=== PATIENT | female | born 1955 | race Caucasian/White ===

== ENCOUNTER 2021-09-21 18:56 | Inpatient (IN) ==
[2021-09-26] MEDS ORDERED: ALPRAZolam 1 MG TABLET PO SCH (21:00)
[2021-09-26] MEDS: ALPRAZolam 1 MG TABLET PO SCH (21:17)
[2021-09-26] MEDS: polyethylene glycoL 3350 17 GM POWD.PACK PO SCH (21:18)
[2021-09-26] MEDS: carvediloL 6.25 MG TABLET PO SCH (22:49)
[2021-09-27] MEDS: *HR* Enoxaparin 40 MG/0.4 ML SYRINGE SQ SCH (05:19)
[2021-09-27] MEDS: *HR* OxyCODONE Immed Rel 5 MG TABLET PO PRN ×2 (05:19→13:40)
[2021-09-27 07:03] LABS: Basophils % 0.3 %; Eosinophils % 0.2 %; Hematocrit 25.6 % (35.3-44.9); Immature Granulocytes % 2.1 % (0-4); Lymphocytes # 0.7 K/mcL (0.6-4.6); Lymphocytes % 6.1 %; Mean Corpuscular HGB Conc 31.3 g/dL (31.6-35.5); Mean Corpuscular Volume 89.5 fL (83.0-100.0); Mean Platelet Volume 9.6 fL (9.4-12.4); Monocytes # 0.5 K/mcL (0.0-1.3); Monocytes % 4.5 %; Neutrophils # 9.9 K/mcL (1.6-8.9); Platelet Count 254 K/mcL (140-400); Red Blood Count 2.86 M/mcL (3.82-4.97); Red Cell Distribution Width 15.5 % (11.5-14.5); Segmented Neutrophils % 86.8 %; White Blood Count 11.4 K/mcL (4.3-11.1)
[2021-09-27 07:26] LABS: BUN/Creatinine Ratio 14 (6-26); Blood Urea Nitrogen 9 mg/dL (8-23); Calcium 7.7 mg/dL (8.6-10.3); Carbon Dioxide 23 mEq/L (23-29); Chloride 98 mEq/L (98-107); Glucose 111 mg/dL (70-105); Osmolality,Calculated 269 (280-300); Potassium 2.9 mEq/L (3.5-5.1); Sodium 130 mEq/L (136-145); eGFR For African Americans > 60 (> 60); eGFR For Non-African Americans > 60 (> 60)
[2021-09-27] MEDS: lisinopriL 10 MG TABLET PO SCH (08:28)
[2021-09-27] MEDS: PARoxetine 20 MG TABLET PO SCH (08:28)
[2021-09-27] MEDS: carvediloL 6.25 MG TABLET PO SCH ×2 (08:28→16:16)
[2021-09-27] MEDS: ALPRAZolam 1 MG TABLET PO SCH ×3 (08:29→20:24)
[2021-09-27] MEDS: Cholecalciferol (D-3) 1,000 UNIT (25MCG) TABLET PO SCH (08:29)
[2021-09-27] MEDS: polyethylene glycoL 3350 17 GM POWD.PACK PO SCH ×2 (08:29→20:25)
[2021-09-27] MEDS: cefTRIAXone 2,000 MG in 0.9 % Sodium Chloride Mini Bag 100 ML IVPB SCH (08:29)
[2021-09-27] MEDS: Aspirin Enteric Coated 81 MG Tablet PO SCH (08:29)
[2021-09-27] MEDS: Isosorbide MONOnitrate (24 HR) 30 MG TAB.ER.24H PO SCH (08:29)
[2021-09-27] MEDS ORDERED: CefTRIAXone 2,000 MG VIAL IVPB SCH (09:00)
[2021-09-27] MEDS ORDERED: Potassium Chloride Elixir 20 MEQ/15 ML UDC PO ONE (12:13)
[2021-09-27] MEDS: Nicotine 21 MG PATCH.TD24 TD SCH (16:17)
[2021-09-28] MEDS: *HR* Enoxaparin 40 MG/0.4 ML SYRINGE SQ SCH (05:35)
[2021-09-28] MEDS: Aspirin Enteric Coated 81 MG Tablet PO SCH (08:34)
[2021-09-28] MEDS: ALPRAZolam 1 MG TABLET PO SCH ×3 (08:34→20:10)
[2021-09-28] MEDS: Isosorbide MONOnitrate (24 HR) 30 MG TAB.ER.24H PO SCH (08:34)
[2021-09-28] MEDS: carvediloL 6.25 MG TABLET PO SCH ×2 (08:34→15:41)
[2021-09-28] MEDS: lisinopriL 10 MG TABLET PO SCH (08:34)
[2021-09-28] MEDS: Cholecalciferol (D-3) 1,000 UNIT (25MCG) TABLET PO SCH (08:34)
[2021-09-28] MEDS: polyethylene glycoL 3350 17 GM POWD.PACK PO SCH ×2 (08:35→20:11)
[2021-09-28] MEDS: cefTRIAXone 2,000 MG in 0.9 % Sodium Chloride Mini Bag 100 ML IVPB SCH (08:36)
[2021-09-28] MEDS: PARoxetine 20 MG TABLET PO SCH (08:37)
[2021-09-28] MEDS: Nicotine 21 MG PATCH.TD24 TD SCH (08:41)
[2021-09-28] MEDS: *HR* OxyCODONE Immed Rel 5 MG TABLET PO PRN (15:40)
[2021-09-29] MEDS: *HR* Enoxaparin 40 MG/0.4 ML SYRINGE SQ SCH (06:12)
[2021-09-29] MEDS: *HR* OxyCODONE Immed Rel 5 MG TABLET PO PRN ×3 (06:12→23:11)
[2021-09-29] MEDS: cefTRIAXone 2,000 MG in 0.9 % Sodium Chloride Mini Bag 100 ML IVPB SCH (09:09)
[2021-09-29] MEDS: Aspirin Enteric Coated 81 MG Tablet PO SCH (09:11)
[2021-09-29] MEDS: carvediloL 6.25 MG TABLET PO SCH ×2 (09:11→16:41)
[2021-09-29] MEDS: PARoxetine 20 MG TABLET PO SCH (09:11)
[2021-09-29] MEDS: polyethylene glycoL 3350 17 GM POWD.PACK PO SCH ×2 (09:11→20:34)
[2021-09-29] MEDS: lisinopriL 10 MG TABLET PO SCH (09:11)
[2021-09-29] MEDS: ALPRAZolam 1 MG TABLET PO SCH (09:11)
[2021-09-29] MEDS: Cholecalciferol (D-3) 1,000 UNIT (25MCG) TABLET PO SCH (09:11)
[2021-09-29] MEDS: Nicotine 21 MG PATCH.TD24 TD SCH (09:12)
[2021-09-29] MEDS: Isosorbide MONOnitrate (24 HR) 30 MG TAB.ER.24H PO SCH (09:12)
[2021-09-29 13:09] LABS: Basophils % 0.2 %; Eosinophils % 0.2 %; Hematocrit 25.8 % (35.3-44.9); Immature Granulocytes % 2.5 % (0-4); Lymphocytes # 0.9 K/mcL (0.6-4.6); Lymphocytes % 8.3 %; Mean Corpuscular Volume 90.2 fL (83.0-100.0); Mean Platelet Volume 9.3 fL (9.4-12.4); Monocytes # 0.4 K/mcL (0.0-1.3); Monocytes % 4.1 %; Platelet Count 277 K/mcL (140-400); Red Blood Count 2.86 M/mcL (3.82-4.97); Red Cell Distribution Width 15.6 % (11.5-14.5); Segmented Neutrophils % 84.7 %; White Blood Count 10.6 K/mcL (4.3-11.1)
[2021-09-29 13:27] LABS: BUN/Creatinine Ratio 19 (6-26); Blood Urea Nitrogen 16 mg/dL (8-23); Calcium 7.7 mg/dL (8.6-10.3); Carbon Dioxide 27 mEq/L (23-29); Chloride 95 mEq/L (98-107); Glucose 97 mg/dL (70-105); Osmolality,Calculated 271 (280-300); Potassium 3.2 mEq/L (3.5-5.1); Sodium 130 mEq/L (136-145); eGFR For African Americans > 60 (> 60); eGFR For Non-African Americans > 60 (> 60)
[2021-09-29] MEDS: ALPRAZolam 1 MG TABLET PO PRN (16:41)
[2021-09-30] MEDS: *HR* Enoxaparin 40 MG/0.4 ML SYRINGE SQ SCH (05:36)
[2021-09-30] MEDS: carvediloL 6.25 MG TABLET PO SCH ×2 (10:41→17:03)
[2021-09-30] MEDS: PARoxetine 20 MG TABLET PO SCH (10:42)
[2021-09-30] MEDS: Cholecalciferol (D-3) 1,000 UNIT (25MCG) TABLET PO SCH (10:42)
[2021-09-30] MEDS: Isosorbide MONOnitrate (24 HR) 30 MG TAB.ER.24H PO SCH (10:42)
[2021-09-30] MEDS: lisinopriL 10 MG TABLET PO SCH (10:42)
[2021-09-30] MEDS: Aspirin Enteric Coated 81 MG Tablet PO SCH (10:42)
[2021-09-30] MEDS: Nicotine 21 MG PATCH.TD24 TD SCH (10:43)
[2021-09-30] MEDS: polyethylene glycoL 3350 17 GM POWD.PACK PO SCH ×2 (10:43→20:39)
[2021-09-30] MEDS: cefTRIAXone 2,000 MG in 0.9 % Sodium Chloride Mini Bag 100 ML IVPB SCH (10:44)
[2021-09-30] MEDS: *HR* OxyCODONE Immed Rel 5 MG TABLET PO PRN ×2 (10:56→20:43)
[2021-10-01] MEDS: *HR* Enoxaparin 40 MG/0.4 ML SYRINGE SQ SCH (06:20)
[2021-10-01 08:26] LABS: Basophils # 0.1 K/mcL (0.0-0.2); Basophils % 0.4 %; Eosinophils # 0.1 K/mcL (0.0-0.6); Eosinophils % 1.2 %; Hematocrit 25.5 % (35.3-44.9); Hemoglobin 7.7 g/dL (11.5-15.4); Immature Granulocytes % 4.9 % (0-4); Lymphocytes # 0.9 K/mcL (0.6-4.6); Lymphocytes % 7.5 %; Mean Corpuscular HGB Conc 30.2 g/dL (31.6-35.5); Mean Corpuscular Hemoglobin 27.5 pg (28.0-33.3); Mean Corpuscular Volume 91.1 fL (83.0-100.0); Mean Platelet Volume 9.6 fL (9.4-12.4); Monocytes # 0.4 K/mcL (0.0-1.3); Monocytes % 3.6 %; Neutrophils # 9.3 K/mcL (1.6-8.9); Nucleated Red Blood Cells 0.2 /100 WBC (0); Platelet Count 306 K/mcL (140-400); Red Cell Distribution Width 15.4 % (11.5-14.5); Segmented Neutrophils % 82.4 %; White Blood Count 11.3 K/mcL (4.3-11.1)
[2021-10-01 08:43] LABS: BUN/Creatinine Ratio 25 (6-26); Blood Urea Nitrogen 22 mg/dL (8-23); Calcium 8.1 mg/dL (8.6-10.3); Carbon Dioxide 27 mEq/L (23-29); Chloride 98 mEq/L (98-107); Glucose 113 mg/dL (70-105); Osmolality,Calculated 278 (280-300); Potassium 3.3 mEq/L (3.5-5.1); Sodium 132 mEq/L (136-145); eGFR For African Americans > 60 (> 60); eGFR For Non-African Americans > 60 (> 60)
[2021-10-01] MEDS: Isosorbide MONOnitrate (24 HR) 30 MG TAB.ER.24H PO SCH (09:52)
[2021-10-01] MEDS: PARoxetine 20 MG TABLET PO SCH (09:52)
[2021-10-01] MEDS: Cholecalciferol (D-3) 1,000 UNIT (25MCG) TABLET PO SCH (09:52)
[2021-10-01] MEDS: lisinopriL 10 MG TABLET PO SCH (09:52)
[2021-10-01] MEDS: polyethylene glycoL 3350 17 GM POWD.PACK PO SCH ×2 (09:53→21:23)
[2021-10-01] MEDS: carvediloL 6.25 MG TABLET PO SCH ×2 (09:53→17:14)
[2021-10-01] MEDS: Aspirin Enteric Coated 81 MG Tablet PO SCH (09:53)
[2021-10-01] MEDS: cefTRIAXone 2,000 MG in 0.9 % Sodium Chloride Mini Bag 100 ML IVPB SCH (09:54)
[2021-10-01] MEDS: Nicotine 21 MG PATCH.TD24 TD SCH (09:54)
[2021-10-01 14:14] LABS: C-Reactive Protein 157 mg/L (Less than 10)
[2021-10-01] MEDS: *HR* OxyCODONE Immed Rel 5 MG TABLET PO PRN (18:35)
[2021-10-01] MEDS: ALPRAZolam 1 MG TABLET PO PRN (18:39)
[2021-10-02] MEDS: *HR* OxyCODONE Immed Rel 5 MG TABLET PO PRN ×2 (01:16→21:57)
[2021-10-02] MEDS: ALPRAZolam 1 MG TABLET PO PRN ×2 (03:31→18:31)
[2021-10-02] MEDS: *HR* Enoxaparin 40 MG/0.4 ML SYRINGE SQ SCH (06:02)
[2021-10-02] MEDS: Aspirin Enteric Coated 81 MG Tablet PO SCH (12:03)
[2021-10-02] MEDS: carvediloL 6.25 MG TABLET PO SCH ×2 (12:03→16:53)
[2021-10-02] MEDS: lisinopriL 10 MG TABLET PO SCH (12:04)
[2021-10-02] MEDS: PARoxetine 20 MG TABLET PO SCH (12:04)
[2021-10-02] MEDS: Nicotine 21 MG PATCH.TD24 TD SCH (12:04)
[2021-10-02] MEDS: Isosorbide MONOnitrate (24 HR) 30 MG TAB.ER.24H PO SCH (12:04)
[2021-10-02] MEDS: polyethylene glycoL 3350 17 GM POWD.PACK PO SCH ×2 (12:04→21:05)
[2021-10-02] MEDS: Cholecalciferol (D-3) 1,000 UNIT (25MCG) TABLET PO SCH (12:04)
[2021-10-02] MEDS: cefTRIAXone 2,000 MG in 0.9 % Sodium Chloride Mini Bag 100 ML IVPB SCH (13:35)
[2021-10-02] MEDS: Nystatin POWDER 30 GM BOTTLE TP SCH (21:57)
[2021-10-03] MEDS: *HR* OxyCODONE Immed Rel 5 MG TABLET PO PRN ×2 (04:04→10:45)
[2021-10-03] MEDS: *HR* Enoxaparin 40 MG/0.4 ML SYRINGE SQ SCH (06:52)
[2021-10-03 09:21] LABS: BUN/Creatinine Ratio 16 (6-26); Blood Urea Nitrogen 12 mg/dL (8-23); Calcium 7.7 mg/dL (8.6-10.3); Carbon Dioxide 29 mEq/L (23-29); Chloride 96 mEq/L (98-107); Glucose 134 mg/dL (70-105); Osmolality,Calculated 276 (280-300); Potassium 2.9 mEq/L (3.5-5.1); Sodium 132 mEq/L (136-145); eGFR For African Americans > 60 (> 60); eGFR For Non-African Americans > 60 (> 60)
[2021-10-03] MEDS: polyethylene glycoL 3350 17 GM POWD.PACK PO SCH ×2 (10:44→20:22)
[2021-10-03] MEDS: Isosorbide MONOnitrate (24 HR) 30 MG TAB.ER.24H PO SCH (10:45)
[2021-10-03] MEDS: cefTRIAXone 2,000 MG in 0.9 % Sodium Chloride Mini Bag 100 ML IVPB SCH (10:45)
[2021-10-03] MEDS: Nicotine 21 MG PATCH.TD24 TD SCH (10:45)
[2021-10-03] MEDS: Cholecalciferol (D-3) 1,000 UNIT (25MCG) TABLET PO SCH (10:45)
[2021-10-03] MEDS: Aspirin Enteric Coated 81 MG Tablet PO SCH (10:45)
[2021-10-03] MEDS: ALPRAZolam 1 MG TABLET PO PRN (10:46)
[2021-10-03] MEDS: PARoxetine 20 MG TABLET PO SCH (10:46)
[2021-10-03] MEDS: carvediloL 6.25 MG TABLET PO SCH ×2 (10:46→17:03)
[2021-10-03] MEDS: lisinopriL 10 MG TABLET PO SCH (10:46)
[2021-10-03] MEDS: Nystatin POWDER 30 GM BOTTLE TP SCH ×2 (10:47→20:22)
[2021-10-04] MEDS: *HR* Enoxaparin 40 MG/0.4 ML SYRINGE SQ SCH (06:24)
[2021-10-04 08:31] LABS: BUN/Creatinine Ratio 17 (6-26); Blood Urea Nitrogen 12 mg/dL (8-23); Calcium 7.7 mg/dL (8.6-10.3); Carbon Dioxide 26 mEq/L (23-29); Chloride 98 mEq/L (98-107); Glucose 98 mg/dL (70-105); Osmolality,Calculated 274 (280-300); Sodium 132 mEq/L (136-145); eGFR For African Americans > 60 (> 60); eGFR For Non-African Americans > 60 (> 60)
[2021-10-04] MEDS: PARoxetine 20 MG TABLET PO SCH (08:42)
[2021-10-04] MEDS: Isosorbide MONOnitrate (24 HR) 30 MG TAB.ER.24H PO SCH (08:42)
[2021-10-04] MEDS: carvediloL 6.25 MG TABLET PO SCH ×2 (08:45→16:44)
[2021-10-04] MEDS: ALPRAZolam 1 MG TABLET PO PRN ×2 (08:45→20:55)
[2021-10-04] MEDS: Aspirin Enteric Coated 81 MG Tablet PO SCH (08:45)
[2021-10-04] MEDS: Cholecalciferol (D-3) 1,000 UNIT (25MCG) TABLET PO SCH (08:45)
[2021-10-04] MEDS: *HR* OxyCODONE Immed Rel 5 MG TABLET PO PRN ×2 (08:46→20:55)
[2021-10-04] MEDS: Nystatin POWDER 30 GM BOTTLE TP SCH ×2 (08:46→20:56)
[2021-10-04] MEDS: polyethylene glycoL 3350 17 GM POWD.PACK PO SCH ×2 (08:46→20:55)
[2021-10-04] MEDS: lisinopriL 10 MG TABLET PO SCH (08:51)
[2021-10-04] MEDS: cefTRIAXone 2,000 MG in 0.9 % Sodium Chloride Mini Bag 100 ML IVPB SCH (08:55)
[2021-10-04] MEDS ORDERED: Magnesium Oxide 400 MG TABLET PO ONE (09:41)
[2021-10-05] MEDS: *HR* Enoxaparin 40 MG/0.4 ML SYRINGE SQ SCH (06:31)
[2021-10-05 09:14] LABS: Basophils % 0.4 %; Eosinophils # 0.1 K/mcL (0.0-0.6); Eosinophils % 0.9 %; Hematocrit 26.6 % (35.3-44.9); Immature Granulocytes % 4.1 % (0-4); Lymphocytes # 0.7 K/mcL (0.6-4.6); Lymphocytes % 7.2 %; Mean Corpuscular HGB Conc 30.1 g/dL (31.6-35.5); Mean Corpuscular Volume 89.9 fL (83.0-100.0); Mean Platelet Volume 9.4 fL (9.4-12.4); Monocytes # 0.3 K/mcL (0.0-1.3); Monocytes % 3.4 %; Neutrophils # 7.8 K/mcL (1.6-8.9); Platelet Count 251 K/mcL (140-400); Red Blood Count 2.96 M/mcL (3.82-4.97); Red Cell Distribution Width 15.5 % (11.5-14.5); White Blood Count 9.3 K/mcL (4.3-11.1)
[2021-10-05 09:27] LABS: BUN/Creatinine Ratio 17 (6-26); Blood Urea Nitrogen 11 mg/dL (8-23); Calcium 7.9 mg/dL (8.6-10.3); Carbon Dioxide 26 mEq/L (23-29); Chloride 97 mEq/L (98-107); Glucose 92 mg/dL (70-105); Osmolality,Calculated 271 (280-300); Potassium 3.7 mEq/L (3.5-5.1); Sodium 131 mEq/L (136-145); eGFR For African Americans > 60 (> 60); eGFR For Non-African Americans > 60 (> 60)
[2021-10-05] MEDS: cefTRIAXone 2,000 MG in 0.9 % Sodium Chloride Mini Bag 100 ML IVPB SCH (09:32)
[2021-10-05] MEDS: carvediloL 6.25 MG TABLET PO SCH ×2 (09:37→17:24)
[2021-10-05] MEDS: Aspirin Enteric Coated 81 MG Tablet PO SCH (09:38)
[2021-10-05] MEDS: lisinopriL 10 MG TABLET PO SCH (09:38)
[2021-10-05] MEDS: Cholecalciferol (D-3) 1,000 UNIT (25MCG) TABLET PO SCH (09:38)
[2021-10-05] MEDS: Isosorbide MONOnitrate (24 HR) 30 MG TAB.ER.24H PO SCH (09:39)
[2021-10-05] MEDS: Nystatin POWDER 30 GM BOTTLE TP SCH ×2 (09:39→23:37)
[2021-10-05] MEDS: polyethylene glycoL 3350 17 GM POWD.PACK PO SCH ×3 (09:39→23:40)
[2021-10-05] MEDS: PARoxetine 20 MG TABLET PO SCH (09:39)
[2021-10-05] MEDS: ALPRAZolam 1 MG TABLET PO PRN (23:36)
[2021-10-05] MEDS: *HR* OxyCODONE Immed Rel 5 MG TABLET PO PRN (23:36)
[2021-10-06] MEDS: *HR* Enoxaparin 40 MG/0.4 ML SYRINGE SQ SCH (05:40)
[2021-10-06] MEDS: Cholecalciferol (D-3) 1,000 UNIT (25MCG) TABLET PO SCH (08:05)
[2021-10-06] MEDS: Isosorbide MONOnitrate (24 HR) 30 MG TAB.ER.24H PO SCH (08:05)
[2021-10-06] MEDS: Aspirin Enteric Coated 81 MG Tablet PO SCH (08:05)
[2021-10-06] MEDS: PARoxetine 20 MG TABLET PO SCH (08:05)
[2021-10-06] MEDS: polyethylene glycoL 3350 17 GM POWD.PACK PO SCH ×2 (08:06→19:51)
[2021-10-06] MEDS: Nystatin POWDER 30 GM BOTTLE TP SCH ×2 (08:08→19:52)
[2021-10-06] MEDS: carvediloL 6.25 MG TABLET PO SCH ×2 (08:10→16:09)
[2021-10-06] MEDS: lisinopriL 10 MG TABLET PO SCH (08:10)
[2021-10-06] MEDS: cefTRIAXone 2,000 MG in 0.9 % Sodium Chloride Mini Bag 100 ML IVPB SCH (08:41)
[2021-10-06] MEDS: ALPRAZolam 1 MG TABLET PO PRN (10:55)
[2021-10-06] MEDS: ALPRAZolam 0.5 MG TABLET PO SCH ×2 (16:09→19:51)
[2021-10-07] MEDS: *HR* Enoxaparin 40 MG/0.4 ML SYRINGE SQ SCH (05:19)
[2021-10-07] MEDS: PARoxetine 20 MG TABLET PO SCH (07:15)
[2021-10-07] MEDS: Isosorbide MONOnitrate (24 HR) 30 MG TAB.ER.24H PO SCH (07:15)
[2021-10-07] MEDS: ALPRAZolam 0.5 MG TABLET PO SCH ×3 (07:15→19:19)
[2021-10-07] MEDS: carvediloL 6.25 MG TABLET PO SCH ×2 (07:15→16:23)
[2021-10-07] MEDS: polyethylene glycoL 3350 17 GM POWD.PACK PO SCH ×2 (07:15→19:19)
[2021-10-07] MEDS: Cholecalciferol (D-3) 1,000 UNIT (25MCG) TABLET PO SCH (07:16)
[2021-10-07] MEDS: Aspirin Enteric Coated 81 MG Tablet PO SCH (07:16)
[2021-10-07] MEDS: lisinopriL 10 MG TABLET PO SCH (07:16)
[2021-10-07] MEDS: Nystatin POWDER 30 GM BOTTLE TP SCH ×2 (07:16→19:19)
[2021-10-07] MEDS: cefTRIAXone 2,000 MG in 0.9 % Sodium Chloride Mini Bag 100 ML IVPB SCH (07:36)
[2021-10-08] MEDS: *HR* Enoxaparin 40 MG/0.4 ML SYRINGE SQ SCH (05:57)
[2021-10-08 09:03] LABS: Basophils % 0.3 %; Eosinophils # 0.1 K/mcL (0.0-0.6); Eosinophils % 0.6 %; Hematocrit 26.4 % (35.3-44.9); Hemoglobin 8.1 g/dL (11.5-15.4); Immature Granulocytes % 1.9 % (0-4); Lymphocytes # 0.7 K/mcL (0.6-4.6); Lymphocytes % 6.9 %; Mean Corpuscular HGB Conc 30.7 g/dL (31.6-35.5); Mean Corpuscular Hemoglobin 27.3 pg (28.0-33.3); Mean Corpuscular Volume 88.9 fL (83.0-100.0); Mean Platelet Volume 9.8 fL (9.4-12.4); Monocytes # 0.4 K/mcL (0.0-1.3); Monocytes % 3.6 %; Platelet Count 189 K/mcL (140-400); Red Blood Count 2.97 M/mcL (3.82-4.97); Red Cell Distribution Width 15.5 % (11.5-14.5); Segmented Neutrophils % 86.7 %; White Blood Count 10.4 K/mcL (4.3-11.1)
[2021-10-08] MEDS: lisinopriL 10 MG TABLET PO SCH (10:00)
[2021-10-08] MEDS: Aspirin Enteric Coated 81 MG Tablet PO SCH (10:00)
[2021-10-08] MEDS: polyethylene glycoL 3350 17 GM POWD.PACK PO SCH ×2 (10:00→20:57)
[2021-10-08] MEDS: Isosorbide MONOnitrate (24 HR) 30 MG TAB.ER.24H PO SCH (10:00)
[2021-10-08] MEDS: ALPRAZolam 0.5 MG TABLET PO SCH ×3 (10:00→20:57)
[2021-10-08] MEDS: carvediloL 6.25 MG TABLET PO SCH ×2 (10:00→15:59)
[2021-10-08] MEDS: Cholecalciferol (D-3) 1,000 UNIT (25MCG) TABLET PO SCH (10:00)
[2021-10-08] MEDS: cefTRIAXone 2,000 MG in 0.9 % Sodium Chloride Mini Bag 100 ML IVPB SCH (10:00)
[2021-10-08] MEDS: PARoxetine 20 MG TABLET PO SCH (10:00)
[2021-10-08] MEDS: Nystatin POWDER 30 GM BOTTLE TP SCH ×2 (10:00→21:01)
[2021-10-08 10:32] LABS: BUN/Creatinine Ratio 16 (6-26); Blood Urea Nitrogen 10 mg/dL (8-23); Calcium 7.6 mg/dL (8.6-10.3); Carbon Dioxide 28 mEq/L (23-29); Chloride 98 mEq/L (98-107); Glucose 101 mg/dL (70-105); Osmolality,Calculated 277 (280-300); Potassium 2.8 mEq/L (3.5-5.1); Sodium 134 mEq/L (136-145); eGFR For African Americans > 60 (> 60); eGFR For Non-African Americans > 60 (> 60)
[2021-10-08 13:16] LABS: C-Reactive Protein 122 mg/L (Less than 10)
[2021-10-08] MEDS ORDERED: Potassium Chloride Elixir 20 MEQ/15 ML UDC PO ONE ×2 (16:42→21:00)
[2021-10-09] MEDS: *HR* Enoxaparin 40 MG/0.4 ML SYRINGE SQ SCH (05:43)
[2021-10-09] MEDS: PARoxetine 20 MG TABLET PO SCH (09:09)
[2021-10-09] MEDS: ALPRAZolam 0.5 MG TABLET PO SCH (09:09)
[2021-10-09] MEDS: Aspirin Enteric Coated 81 MG Tablet PO SCH (09:09)
[2021-10-09] MEDS: carvediloL 6.25 MG TABLET PO SCH ×2 (09:10→16:23)
[2021-10-09] MEDS: lisinopriL 10 MG TABLET PO SCH (09:10)
[2021-10-09] MEDS: Cholecalciferol (D-3) 1,000 UNIT (25MCG) TABLET PO SCH (09:11)
[2021-10-09] MEDS: Nystatin POWDER 30 GM BOTTLE TP SCH ×2 (09:12→19:32)
[2021-10-09] MEDS: Isosorbide MONOnitrate (24 HR) 30 MG TAB.ER.24H PO SCH (09:13)
[2021-10-09] MEDS: polyethylene glycoL 3350 17 GM POWD.PACK PO SCH ×2 (09:16→19:31)
[2021-10-09] MEDS: cefTRIAXone 2,000 MG in 0.9 % Sodium Chloride Mini Bag 100 ML IVPB SCH (09:41)
[2021-10-09] MEDS: Magnesium Oxide 400 MG TABLET PO SCH (16:23)
[2021-10-10] MEDS: *HR* Enoxaparin 40 MG/0.4 ML SYRINGE SQ SCH (05:39)
[2021-10-10] MEDS: Aspirin Enteric Coated 81 MG Tablet PO SCH (07:58)
[2021-10-10] MEDS: Isosorbide MONOnitrate (24 HR) 30 MG TAB.ER.24H PO SCH (07:59)
[2021-10-10] MEDS: Magnesium Oxide 400 MG TABLET PO SCH (07:59)
[2021-10-10] MEDS: PARoxetine 20 MG TABLET PO SCH (07:59)
[2021-10-10] MEDS: carvediloL 6.25 MG TABLET PO SCH ×2 (08:00→16:10)
[2021-10-10] MEDS: Cholecalciferol (D-3) 1,000 UNIT (25MCG) TABLET PO SCH (08:00)
[2021-10-10] MEDS: lisinopriL 10 MG TABLET PO SCH (08:01)
[2021-10-10] MEDS: polyethylene glycoL 3350 17 GM POWD.PACK PO SCH ×2 (08:04→21:05)
[2021-10-10] MEDS: Nystatin POWDER 30 GM BOTTLE TP SCH ×2 (08:04→21:06)
[2021-10-10] MEDS: cefTRIAXone 2,000 MG in 0.9 % Sodium Chloride Mini Bag 100 ML IVPB SCH (08:05)
[2021-10-10] MEDS ORDERED: Ondansetron ODT 4 MG TAB.RAPDIS SL PRN (18:39)
[2021-10-11] MEDS: ALPRAZolam 0.5 MG TABLET PO PRN ×2 (02:47→17:43)
[2021-10-11] MEDS: *HR* Enoxaparin 40 MG/0.4 ML SYRINGE SQ SCH (05:47)
[2021-10-11] MEDS: Aspirin Enteric Coated 81 MG Tablet PO SCH (09:19)
[2021-10-11] MEDS: Magnesium Oxide 400 MG TABLET PO SCH (09:20)
[2021-10-11] MEDS: PARoxetine 20 MG TABLET PO SCH (09:20)
[2021-10-11] MEDS: carvediloL 6.25 MG TABLET PO SCH ×2 (09:20→17:35)
[2021-10-11] MEDS: Isosorbide MONOnitrate (24 HR) 30 MG TAB.ER.24H PO SCH (09:21)
[2021-10-11] MEDS: lisinopriL 10 MG TABLET PO SCH (09:21)
[2021-10-11] MEDS: Cholecalciferol (D-3) 1,000 UNIT (25MCG) TABLET PO SCH (09:21)
[2021-10-11] MEDS: polyethylene glycoL 3350 17 GM POWD.PACK PO SCH ×2 (09:23→19:34)
[2021-10-11] MEDS: Nystatin POWDER 30 GM BOTTLE TP SCH ×2 (09:26→21:45)
[2021-10-11] MEDS: cefTRIAXone 2,000 MG in 0.9 % Sodium Chloride Mini Bag 100 ML IVPB SCH ×2 (12:35→14:08)
[2021-10-12] MEDS: *HR* Enoxaparin 40 MG/0.4 ML SYRINGE SQ SCH (05:34)
[2021-10-12] MEDS: PARoxetine 20 MG TABLET PO SCH (08:51)
[2021-10-12] MEDS: Aspirin Enteric Coated 81 MG Tablet PO SCH (08:51)
[2021-10-12] MEDS: Magnesium Oxide 400 MG TABLET PO SCH (08:52)
[2021-10-12] MEDS: Cholecalciferol (D-3) 1,000 UNIT (25MCG) TABLET PO SCH (08:52)
[2021-10-12] MEDS: carvediloL 6.25 MG TABLET PO SCH ×2 (08:52→17:05)
[2021-10-12] MEDS: Isosorbide MONOnitrate (24 HR) 30 MG TAB.ER.24H PO SCH (08:53)
[2021-10-12] MEDS: lisinopriL 10 MG TABLET PO SCH (08:54)
[2021-10-12] MEDS: cefTRIAXone 2,000 MG in 0.9 % Sodium Chloride Mini Bag 100 ML IVPB SCH (08:55)
[2021-10-12] MEDS: polyethylene glycoL 3350 17 GM POWD.PACK PO SCH ×2 (08:57→21:40)
[2021-10-12] MEDS: Nystatin POWDER 30 GM BOTTLE TP SCH ×2 (08:57→21:40)
[2021-10-12 09:38] LABS: Hematocrit 25.2 % (35.3-44.9); Hemoglobin 7.4 g/dL (11.5-15.4); Mean Corpuscular HGB Conc 29.4 g/dL (31.6-35.5); Mean Corpuscular Volume 88.4 fL (83.0-100.0); Mean Platelet Volume 9.6 fL (9.4-12.4); Platelet Count 176 K/mcL (140-400); Red Blood Count 2.85 M/mcL (3.82-4.97); Red Cell Distribution Width 15.6 % (11.5-14.5); White Blood Count 12.1 K/mcL (4.3-11.1)
[2021-10-12 09:57] LABS: BUN/Creatinine Ratio 21 (6-26); Blood Urea Nitrogen 12 mg/dL (8-23); Calcium 7.7 mg/dL (8.6-10.3); Carbon Dioxide 27 mEq/L (23-29); Chloride 100 mEq/L (98-107); Glucose 113 mg/dL (70-105); Osmolality,Calculated 281 (280-300); Potassium 3.2 mEq/L (3.5-5.1); Sodium 135 mEq/L (136-145); eGFR For African Americans > 60 (> 60); eGFR For Non-African Americans > 60 (> 60)
[2021-10-12] MEDS: ALPRAZolam 0.5 MG TABLET PO PRN (22:47)
[2021-10-13] MEDS: *HR* Enoxaparin 40 MG/0.4 ML SYRINGE SQ SCH (07:11)
[2021-10-13] MEDS: cefTRIAXone 2,000 MG in 0.9 % Sodium Chloride Mini Bag 100 ML IVPB SCH (08:11)
[2021-10-13] MEDS: Magnesium Oxide 400 MG TABLET PO SCH (11:00)
[2021-10-13] MEDS: carvediloL 6.25 MG TABLET PO SCH ×2 (11:00→17:42)
[2021-10-13] MEDS: Aspirin Enteric Coated 81 MG Tablet PO SCH (11:00)
[2021-10-13] MEDS: Isosorbide MONOnitrate (24 HR) 30 MG TAB.ER.24H PO SCH (11:00)
[2021-10-13] MEDS: PARoxetine 20 MG TABLET PO SCH (11:00)
[2021-10-13] MEDS: Cholecalciferol (D-3) 1,000 UNIT (25MCG) TABLET PO SCH (11:00)
[2021-10-13] MEDS: lisinopriL 10 MG TABLET PO SCH (11:01)
[2021-10-13] MEDS: Nystatin POWDER 30 GM BOTTLE TP SCH ×2 (11:03→20:38)
[2021-10-13] MEDS: polyethylene glycoL 3350 17 GM POWD.PACK PO SCH ×2 (11:03→20:32)
[2021-10-13] MEDS: ALPRAZolam 0.5 MG TABLET PO PRN (20:37)
[2021-10-14] MEDS: *HR* Enoxaparin 40 MG/0.4 ML SYRINGE SQ SCH (05:05)
[2021-10-14] MEDS: carvediloL 6.25 MG TABLET PO SCH ×2 (08:22→17:08)
[2021-10-14] MEDS: Isosorbide MONOnitrate (24 HR) 30 MG TAB.ER.24H PO SCH (08:24)
[2021-10-14] MEDS: PARoxetine 20 MG TABLET PO SCH (08:24)
[2021-10-14] MEDS: Aspirin Enteric Coated 81 MG Tablet PO SCH (08:24)
[2021-10-14] MEDS: Cholecalciferol (D-3) 1,000 UNIT (25MCG) TABLET PO SCH (08:25)
[2021-10-14] MEDS: polyethylene glycoL 3350 17 GM POWD.PACK PO SCH ×2 (08:26→20:48)
[2021-10-14] MEDS: Magnesium Oxide 400 MG TABLET PO SCH (08:26)
[2021-10-14] MEDS: lisinopriL 10 MG TABLET PO SCH (08:27)
[2021-10-14] MEDS: Nystatin POWDER 30 GM BOTTLE TP SCH ×2 (08:31→20:54)
[2021-10-14] MEDS: ALPRAZolam 0.5 MG TABLET PO PRN ×2 (13:50→20:48)
[2021-10-15] MEDS: *HR* Enoxaparin 40 MG/0.4 ML SYRINGE SQ SCH (06:55)
[2021-10-15 07:17] LABS: Hematocrit 22.7 % (35.3-44.9); Hemoglobin 6.6 g/dL (11.5-15.4); Mean Corpuscular HGB Conc 29.1 g/dL (31.6-35.5); Mean Corpuscular Hemoglobin 26.1 pg (28.0-33.3); Mean Corpuscular Volume 89.7 fL (83.0-100.0); Mean Platelet Volume 9.9 fL (9.4-12.4); Platelet Count 168 K/mcL (140-400); Red Blood Count 2.53 M/mcL (3.82-4.97); Red Cell Distribution Width 15.9 % (11.5-14.5); White Blood Count 7.6 K/mcL (4.3-11.1)
[2021-10-15 07:29] LABS: BUN/Creatinine Ratio 26 (6-26); Blood Urea Nitrogen 16 mg/dL (8-23); Calcium 7.9 mg/dL (8.6-10.3); Carbon Dioxide 25 mEq/L (23-29); Chloride 103 mEq/L (98-107); Glucose 104 mg/dL (70-105); Osmolality,Calculated 277 (280-300); Potassium 4.9 mEq/L (3.5-5.1); Sodium 133 mEq/L (136-145); eGFR For African Americans > 60 (> 60); eGFR For Non-African Americans > 60 (> 60)
[2021-10-15] MEDS ORDERED: 0.9 % Sodium Chloride 250 ML IVC SCH (08:00)
[2021-10-15] MEDS: Magnesium Oxide 400 MG TABLET PO SCH (09:41)
[2021-10-15] MEDS: lisinopriL 10 MG TABLET PO SCH (09:41)
[2021-10-15] MEDS: Cholecalciferol (D-3) 1,000 UNIT (25MCG) TABLET PO SCH (09:42)
[2021-10-15] MEDS: carvediloL 6.25 MG TABLET PO SCH ×2 (09:42→16:46)
[2021-10-15] MEDS: Isosorbide MONOnitrate (24 HR) 30 MG TAB.ER.24H PO SCH (09:42)
[2021-10-15] MEDS: PARoxetine 20 MG TABLET PO SCH (09:42)
[2021-10-15] MEDS: Aspirin Enteric Coated 81 MG Tablet PO SCH (09:42)
[2021-10-15] MEDS: polyethylene glycoL 3350 17 GM POWD.PACK PO SCH ×2 (09:42→20:08)
[2021-10-15] MEDS: Nystatin POWDER 30 GM BOTTLE TP SCH ×2 (09:43→20:09)
[2021-10-15] MEDS: ALPRAZolam 0.5 MG TABLET PO PRN (20:09)
[2021-10-16] MEDS: *HR* Enoxaparin 40 MG/0.4 ML SYRINGE SQ SCH (06:15)
[2021-10-16 07:15] LABS: Basophils % 0.3 %; Eosinophils # 0.1 K/mcL (0.0-0.6); Eosinophils % 0.9 %; Hemoglobin 9.7 g/dL (11.5-15.4); Immature Granulocytes % 2.1 % (0-4); Lymphocytes # 0.7 K/mcL (0.6-4.6); Mean Corpuscular HGB Conc 31.3 g/dL (31.6-35.5); Mean Corpuscular Hemoglobin 27.2 pg (28.0-33.3); Mean Corpuscular Volume 86.8 fL (83.0-100.0); Mean Platelet Volume 9.9 fL (9.4-12.4); Monocytes # 0.3 K/mcL (0.0-1.3); Monocytes % 3.5 %; Neutrophils # 8.1 K/mcL (1.6-8.9); Platelet Count 190 K/mcL (140-400); Red Blood Count 3.57 M/mcL (3.82-4.97); Red Cell Distribution Width 15.6 % (11.5-14.5); Segmented Neutrophils % 86.2 %; White Blood Count 9.4 K/mcL (4.3-11.1)
[2021-10-16 07:43] LABS: BUN/Creatinine Ratio 28 (6-26); Blood Urea Nitrogen 17 mg/dL (8-23); Calcium 7.9 mg/dL (8.6-10.3); Carbon Dioxide 24 mEq/L (23-29); Chloride 100 mEq/L (98-107); Glucose 104 mg/dL (70-105); Osmolality,Calculated 272 (280-300); Potassium 4.5 mEq/L (3.5-5.1); Sodium 130 mEq/L (136-145); eGFR For African Americans > 60 (> 60); eGFR For Non-African Americans > 60 (> 60)
[2021-10-16] MEDS: Cholecalciferol (D-3) 1,000 UNIT (25MCG) TABLET PO SCH (09:02)
[2021-10-16] MEDS: Aspirin Enteric Coated 81 MG Tablet PO SCH (09:02)
[2021-10-16] MEDS: PARoxetine 20 MG TABLET PO SCH (09:02)
[2021-10-16] MEDS: carvediloL 6.25 MG TABLET PO SCH ×2 (09:03→16:32)
[2021-10-16] MEDS: polyethylene glycoL 3350 17 GM POWD.PACK PO SCH ×2 (09:03→19:37)
[2021-10-16] MEDS: lisinopriL 10 MG TABLET PO SCH (09:03)
[2021-10-16] MEDS: Isosorbide MONOnitrate (24 HR) 30 MG TAB.ER.24H PO SCH (09:03)
[2021-10-16] MEDS: Nystatin POWDER 30 GM BOTTLE TP SCH ×2 (09:04→19:38)
[2021-10-16] MEDS: Magnesium Oxide 400 MG TABLET PO SCH (09:13)
[2021-10-16] MEDS: ALPRAZolam 0.5 MG TABLET PO PRN (19:37)
[2021-10-17] MEDS: *HR* Enoxaparin 40 MG/0.4 ML SYRINGE SQ SCH (05:21)
[2021-10-17] MEDS: Cholecalciferol (D-3) 1,000 UNIT (25MCG) TABLET PO SCH (07:57)
[2021-10-17] MEDS: Aspirin Enteric Coated 81 MG Tablet PO SCH (07:57)
[2021-10-17] MEDS: lisinopriL 10 MG TABLET PO SCH (07:57)
[2021-10-17] MEDS: carvediloL 6.25 MG TABLET PO SCH ×2 (07:57→17:37)
[2021-10-17] MEDS: Isosorbide MONOnitrate (24 HR) 30 MG TAB.ER.24H PO SCH (07:58)
[2021-10-17] MEDS: ALPRAZolam 0.5 MG TABLET PO PRN ×2 (07:58→19:30)
[2021-10-17] MEDS: Magnesium Oxide 400 MG TABLET PO SCH (07:58)
[2021-10-17] MEDS: PARoxetine 20 MG TABLET PO SCH (07:58)
[2021-10-17] MEDS: Nystatin POWDER 30 GM BOTTLE TP SCH ×2 (07:59→19:31)
[2021-10-17] MEDS: polyethylene glycoL 3350 17 GM POWD.PACK PO SCH ×2 (07:59→19:31)
[2021-10-18] MEDS: *HR* Enoxaparin 40 MG/0.4 ML SYRINGE SQ SCH (05:42)
[2021-10-18] MEDS: carvediloL 6.25 MG TABLET PO SCH ×2 (07:47→16:45)
[2021-10-18] MEDS: Aspirin Enteric Coated 81 MG Tablet PO SCH (07:47)
[2021-10-18] MEDS: Isosorbide MONOnitrate (24 HR) 30 MG TAB.ER.24H PO SCH (07:47)
[2021-10-18] MEDS: Cholecalciferol (D-3) 1,000 UNIT (25MCG) TABLET PO SCH (07:47)
[2021-10-18] MEDS: Magnesium Oxide 400 MG TABLET PO SCH (07:48)
[2021-10-18] MEDS: lisinopriL 10 MG TABLET PO SCH (07:48)
[2021-10-18] MEDS: PARoxetine 20 MG TABLET PO SCH (07:48)
[2021-10-18] MEDS: Nystatin POWDER 30 GM BOTTLE TP SCH ×2 (07:50→21:50)
[2021-10-18] MEDS: polyethylene glycoL 3350 17 GM POWD.PACK PO SCH ×2 (07:51→21:50)
[2021-10-18 08:01] LABS: Basophils % 0.3 %; Hematocrit 29.1 % (35.3-44.9); Hemoglobin 9.1 g/dL (11.5-15.4); Immature Granulocytes % 1.1 % (0-4); Lymphocytes # 0.6 K/mcL (0.6-4.6); Lymphocytes % 7.7 %; Mean Corpuscular HGB Conc 31.3 g/dL (31.6-35.5); Mean Corpuscular Hemoglobin 26.9 pg (28.0-33.3); Mean Corpuscular Volume 86.1 fL (83.0-100.0); Mean Platelet Volume 9.7 fL (9.4-12.4); Monocytes # 0.3 K/mcL (0.0-1.3); Monocytes % 3.8 %; Neutrophils # 6.3 K/mcL (1.6-8.9); Platelet Count 167 K/mcL (140-400); Red Blood Count 3.38 M/mcL (3.82-4.97); Red Cell Distribution Width 15.6 % (11.5-14.5); Segmented Neutrophils % 87.1 %; White Blood Count 7.2 K/mcL (4.3-11.1)
[2021-10-19] MEDS: *HR* Enoxaparin 40 MG/0.4 ML SYRINGE SQ SCH (05:17)
[2021-10-19] MEDS: Aspirin Enteric Coated 81 MG Tablet PO SCH (09:04)
[2021-10-19] MEDS: lisinopriL 10 MG TABLET PO SCH (09:04)
[2021-10-19] MEDS: Cholecalciferol (D-3) 1,000 UNIT (25MCG) TABLET PO SCH (09:05)
[2021-10-19] MEDS: Isosorbide MONOnitrate (24 HR) 30 MG TAB.ER.24H PO SCH (09:05)
[2021-10-19] MEDS: carvediloL 6.25 MG TABLET PO SCH ×2 (09:05→16:03)
[2021-10-19] MEDS: PARoxetine 20 MG TABLET PO SCH (09:05)
[2021-10-19] MEDS: polyethylene glycoL 3350 17 GM POWD.PACK PO SCH ×2 (09:06→23:57)
[2021-10-19] MEDS: Magnesium Oxide 400 MG TABLET PO SCH (09:07)
[2021-10-19] MEDS: Nystatin POWDER 30 GM BOTTLE TP SCH ×2 (09:07→23:55)
[2021-10-19 16:48] LABS: Adenovirus Not Detected (Not Detect); Coronavirus 229E Not Detected (Not Detect); Coronavirus HKU1 Not Detected (Not Detect); Coronavirus NL63 Not Detected (Not Detect); Coronavirus OC43 Not Detected (Not Detect)
[2021-10-19 16:49] LABS: Bordetella Pertussis Not Detected (Not Detect); Chlamydophila pneumoniae Not Detected (Not Detect); Human Metapneumovirus Not Detected (Not Detect); Human Rhinovirus/Enterovirus Not Detected (Not Detect); Influenza A Subtype 2009 H1 Not Detected (Not Detect); Influenza B Not Detected (Not Detect); Mycoplasma pneumoniae Not Detected (Not Detect); Parainfluenza Virus 1 Not Detected (Not Detect); Parainfluenza Virus 2 Not Detected (Not Detect); Parainfluenza Virus 3 Not Detected (Not Detect); Parainfluenza Virus 4 Not Detected (Not Detect); Respiratory Syncytial Virus Not Detected (Not Detect); SARS-CoV-2 DETECTED (Not Detect)
[2021-10-19] MEDS ORDERED: Benzonatate 100 MG CAPSULE PO PRN (19:08)
[2021-10-19] MEDS ORDERED: Acetaminophen 325 MG TABLET PO PRN (19:08)
[2021-10-19] MEDS: ALPRAZolam 0.5 MG TABLET PO PRN (23:51)
[2021-10-20] MEDS: *HR* Enoxaparin 40 MG/0.4 ML SYRINGE SQ SCH (05:57)
[2021-10-20 08:27] LABS: Basophils % 0.1 %; Hematocrit 27.9 % (35.3-44.9); Hemoglobin 8.5 g/dL (11.5-15.4); Immature Granulocytes % 1.7 % (0-4); Lymphocytes # 0.5 K/mcL (0.6-4.6); Lymphocytes % 7.7 %; Mean Corpuscular HGB Conc 30.5 g/dL (31.6-35.5); Mean Corpuscular Hemoglobin 26.6 pg (28.0-33.3); Mean Corpuscular Volume 87.2 fL (83.0-100.0); Mean Platelet Volume 10.1 fL (9.4-12.4); Monocytes # 0.2 K/mcL (0.0-1.3); Monocytes % 2.7 %; Neutrophils # 6.2 K/mcL (1.6-8.9); Platelet Count 147 K/mcL (140-400); Red Cell Distribution Width 15.5 % (11.5-14.5); Segmented Neutrophils % 87.8 %
[2021-10-20 08:39] LABS: Alanine Aminotransferase 10 Units/L (7-52); Albumin 2.4 g/dL (3.5-5.7); Albumin/Globulin Ratio 0.7 (1.1-2.2); Alkaline Phosphatase 63 Units/L (34-104); Aspartate Amino Transferase 18 Units/L (13-39); BUN/Creatinine Ratio 27 (6-26); Bilirubin,Total 0.6 mg/dL (0.3-1.0); Blood Urea Nitrogen 20 mg/dL (8-23); Calcium 7.9 mg/dL (8.6-10.3); Carbon Dioxide 29 mEq/L (23-29); Chloride 99 mEq/L (98-107); Globulin 3.4 g/dL (2.4-3.5); Glucose 89 mg/dL (70-105); Osmolality,Calculated 284 (280-300); Sodium 136 mEq/L (136-145); Total Protein 5.8 g/dL (6.4-8.9); eGFR For African Americans > 60 (> 60); eGFR For Non-African Americans > 60 (> 60)
[2021-10-20 09:33] LABS: C-Reactive Protein 143 mg/L (Less than 10)
[2021-10-20] MEDS: carvediloL 6.25 MG TABLET PO SCH ×2 (10:14→17:21)
[2021-10-20] MEDS: Aspirin Enteric Coated 81 MG Tablet PO SCH (10:14)
[2021-10-20] MEDS: Isosorbide MONOnitrate (24 HR) 30 MG TAB.ER.24H PO SCH (10:15)
[2021-10-20] MEDS: Magnesium Oxide 400 MG TABLET PO SCH (10:15)
[2021-10-20] MEDS: PARoxetine 20 MG TABLET PO SCH (10:16)
[2021-10-20] MEDS: lisinopriL 10 MG TABLET PO SCH (10:16)
[2021-10-20] MEDS: Cholecalciferol (D-3) 1,000 UNIT (25MCG) TABLET PO SCH (10:17)
[2021-10-20] MEDS: polyethylene glycoL 3350 17 GM POWD.PACK PO SCH ×2 (10:18→21:07)
[2021-10-20] MEDS: Nystatin POWDER 30 GM BOTTLE TP SCH ×2 (10:28→21:08)
[2021-10-21] MEDS: *HR* Enoxaparin 40 MG/0.4 ML SYRINGE SQ SCH ×2 (06:11→07:27)
[2021-10-21] MEDS: Aspirin Enteric Coated 81 MG Tablet PO SCH (09:11)
[2021-10-21] MEDS: Cholecalciferol (D-3) 1,000 UNIT (25MCG) TABLET PO SCH (09:12)
[2021-10-21] MEDS: Magnesium Oxide 400 MG TABLET PO SCH (09:12)
[2021-10-21] MEDS: Isosorbide MONOnitrate (24 HR) 30 MG TAB.ER.24H PO SCH (09:12)
[2021-10-21] MEDS: PARoxetine 20 MG TABLET PO SCH (09:13)
[2021-10-21] MEDS: lisinopriL 10 MG TABLET PO SCH (09:13)
[2021-10-21] MEDS: carvediloL 6.25 MG TABLET PO SCH ×2 (09:14→16:11)
[2021-10-21] MEDS: polyethylene glycoL 3350 17 GM POWD.PACK PO SCH (09:15)
[2021-10-21] MEDS: Nystatin POWDER 30 GM BOTTLE TP SCH (09:15)
[2021-10-21 09:59] LABS: Basophils % 0.2 %; Eosinophils % 0.1 %; Hematocrit 30.6 % (35.3-44.9); Hemoglobin 9.4 g/dL (11.5-15.4); Immature Granulocytes % 1.4 % (0-4); Lymphocytes # 0.6 K/mcL (0.6-4.6); Lymphocytes % 7.3 %; Mean Corpuscular HGB Conc 30.7 g/dL (31.6-35.5); Mean Corpuscular Hemoglobin 26.9 pg (28.0-33.3); Mean Corpuscular Volume 87.7 fL (83.0-100.0); Mean Platelet Volume 9.7 fL (9.4-12.4); Monocytes # 0.2 K/mcL (0.0-1.3); Monocytes % 2.2 %; Neutrophils # 7.1 K/mcL (1.6-8.9); Platelet Count 165 K/mcL (140-400); Red Blood Count 3.49 M/mcL (3.82-4.97); Red Cell Distribution Width 15.6 % (11.5-14.5); Segmented Neutrophils % 88.8 %; White Blood Count 8.1 K/mcL (4.3-11.1)
[2021-10-21 10:28] LABS: BUN/Creatinine Ratio 25 (6-26); Blood Urea Nitrogen 18 mg/dL (8-23); Carbon Dioxide 30 mEq/L (23-29); Chloride 102 mEq/L (98-107); Glucose 117 mg/dL (70-105); Osmolality,Calculated 293 (280-300); Potassium 3.6 mEq/L (3.5-5.1); Sodium 140 mEq/L (136-145); eGFR For African Americans > 60 (> 60); eGFR For Non-African Americans > 60 (> 60)
[2021-10-21] MEDS ORDERED: lisinopriL 5 MG TABLET PO SCH (10:45)
[2021-10-21] MEDS ORDERED: lisinopriL 5 MG TABLET PO ONE (12:04)
[2021-10-21] MEDS: ALPRAZolam 0.5 MG TABLET PO PRN (12:41)
[2021-10-21 15:19] VITALS: BP 115/76; PULSE 91; TEMP 98
[2021-10-21 15:22] VITALS: RESP 18; O2SAT 96
[2021-10-21 22:13] LABS: C-Reactive Protein 126 mg/L (Less than 10)
[2021-10-22] MEDS ORDERED: lisinopriL 5 MG TABLET PO SCH ×2 (09:00)
[2021-10-23] MEDS ORDERED: *HR* EPINEPHrine 1 MG/10 ML SYRINGE ONE (07:30)
== END 2021-10-21 17:02 | disposition still patient (30) | DRG 548 ==
LOC: INPPIK 09-26 17:54
PROVIDERS: ADMIT Family Medicine; ATTEND Family Medicine

== ENCOUNTER 2021-10-21 09:19 | Observation (INO) ==
[2021-10-21] MEDS ORDERED: Naloxone 0.4 MG/ML INJ IVP PRN (13:37)
[2021-10-21] MEDS ORDERED: Acetaminophen 325 MG TABLET PO PRN (13:38)
[2021-10-21] MEDS ORDERED: Benzonatate 100 MG CAPSULE PO PRN (13:38)
[2021-10-21] MEDS ORDERED: Ondansetron ODT 4 MG TAB.RAPDIS SL PRN (13:38)
[2021-10-21] MEDS: polyethylene glycoL 3350 17 GM POWD.PACK PO SCH (20:41)
[2021-10-21] MEDS: ALPRAZolam 0.5 MG TABLET PO PRN (20:41)
[2021-10-21] MEDS: Nystatin POWDER 30 GM BOTTLE TP SCH (20:43)
[2021-10-22] MEDS ORDERED: *HR* Enoxaparin 40 MG/0.4 ML SYRINGE SQ SCH (06:00)
[2021-10-22] MEDS: carvediloL 6.25 MG TABLET PO SCH ×2 (08:38→17:39)
[2021-10-22] MEDS: polyethylene glycoL 3350 17 GM POWD.PACK PO SCH ×2 (08:38→21:42)
[2021-10-22] MEDS: Nystatin POWDER 30 GM BOTTLE TP SCH ×2 (08:38→21:42)
[2021-10-22] MEDS ORDERED: Aspirin Enteric Coated 81 MG Tablet PO SCH (09:00)
[2021-10-22] MEDS ORDERED: Isosorbide MONOnitrate (24 HR) 30 MG TAB.ER.24H PO SCH (09:00)
[2021-10-22] MEDS ORDERED: Magnesium Oxide 400 MG TABLET PO SCH (09:00)
[2021-10-22] MEDS ORDERED: Cholecalciferol (D-3) 1,000 UNIT (25MCG) TABLET PO SCH (09:00)
[2021-10-22] MEDS ORDERED: lisinopriL 10 MG TABLET PO SCH (09:00)
[2021-10-22] MEDS ORDERED: PARoxetine 20 MG TABLET PO SCH (09:00)
[2021-10-22 09:13] LABS: Basophils % 0.1 %; Hematocrit 29.8 % (35.3-44.9); Hemoglobin 8.8 g/dL (11.5-15.4); Immature Granulocytes % 1.5 % (0-4); Lymphocytes # 0.7 K/mcL (0.6-4.6); Lymphocytes % 8.6 %; Mean Corpuscular HGB Conc 29.5 g/dL (31.6-35.5); Mean Corpuscular Hemoglobin 26.6 pg (28.0-33.3); Mean Platelet Volume 10.2 fL (9.4-12.4); Monocytes # 0.2 K/mcL (0.0-1.3); Monocytes % 2.1 %; Platelet Count 140 K/mcL (140-400); Red Blood Count 3.31 M/mcL (3.82-4.97); Red Cell Distribution Width 15.9 % (11.5-14.5); Segmented Neutrophils % 87.7 %; White Blood Count 7.9 K/mcL (4.3-11.1)
[2021-10-22 09:25] LABS: BUN/Creatinine Ratio 27 (6-26); Blood Urea Nitrogen 21 mg/dL (8-23); Calcium 8.1 mg/dL (8.6-10.3); Carbon Dioxide 30 mEq/L (23-29); Chloride 102 mEq/L (98-107); Glucose 100 mg/dL (70-105); Osmolality,Calculated 293 (280-300); Potassium 3.5 mEq/L (3.5-5.1); Sodium 140 mEq/L (136-145); eGFR For African Americans > 60 (> 60); eGFR For Non-African Americans > 60 (> 60)
[2021-10-22 21:41] VITALS: BP 156/93; PULSE 90; TEMP 98
[2021-10-22] MEDS: ALPRAZolam 0.5 MG TABLET PO PRN (21:43)
[2021-10-23 05:00] VITALS: RESP 16; O2SAT 91
== END 2021-10-23 10:50 | disposition expired ==
LOC: INPPIK
PROVIDERS: ADMIT Internal Medicine; ATTEND Internal Medicine